=== PATIENT | female | born 2000 | race Caucasian/White ===

== ENCOUNTER 2019-01-04 21:22 | Emergency (ER) | payer SELFPAY ==
[2019-01-04 21:32] VITALS: BP 121/52; PULSE 93; TEMP 98.4; BMI 24.3
--- NOTE | 2019-01-04 21:33 | PDOC ---
Rapid Medical Evaluation Medical Evaluation: 01/04/19 21:29 I have performed a brief in-person evaluation of this patient. The patient presents with a chief complaint of: lower abd pain, CORTÉS, dizziness since today, "just found out i was today." pt states "sometimes I feel like passing out too." denies vag bldg, LMP 12/05, +vomiting, 2-3 times today, denies hematuria or dysuria - OB Drs. Wetzel and Laura, pt is Pertinent physical exam findings: lower abd tenderness I have ordered the following: urine, labs The patient will proceed to the ED for further evaluation.
[2019-01-04] MEDS ORDERED: ACETAMINOPHEN 325 MG TABLET (FP) PO ONE (23:48)
[2019-01-05] MEDS ORDERED: ACETAMINOPHEN 325 MG TABLET (FP) ONE (00:19)
--- NOTE | 2019-01-05 00:35 | PDOC ---
History of Present Illness - General Chief Complaint: Pain Stated Complaint: ABDOMINAL PAIN Time Seen by Provider: 01/04/19 21:29 History Source: Patient Exam Limitations: No Limitations Past History - Past Medical History Allergies/Adverse Reactions: Allergies Allergy/AdvReac Type Severity Reaction Status Date / Time No Known Allergies Allergy Verified 01/04/19 21:30 Home Medications: Ambulatory Orders Cephalexin [Keflex] 500 mg PO BID #14 capsule 01/05/19 COPD: No - Suicide/Smoking/Psychosocial Hx Smoking History: Never smoked *Physical Exam - Vital Signs Last Vital Signs Temp Pulse Resp BP Pulse Ox 98.4 F 93 H 18 121/52 L 97 01/04/19 21:30 01/04/19 21:30 01/04/19 21:30 01/04/19 21:30 01/04/19 21:30 - Physical Exam General Appearance: No: Apparent Distress Respiratory/Chest: positive: Lungs Clear, Normal Breath Sounds. negative: Respiratory Distress Cardiovascular: positive: Regular Rhythm, Regular Rate, S1, S2. negative: Murmur Female Pelvic Exam: negative: adnexal tenderness Gastrointestinal/Abdominal: positive: Normal Bowel Sounds, Soft. negative: Tender, Distended, Guarding, Rebound Integumentary: positive: Normal Color Neurologic: positive: Alert, Normal Mood/Affect ED Treatment Course - LABORATORY CBC & Chemistry Diagram: 01/05/19 00:20 01/05/19 00:20 - Medications Given in the ED: ED Medications Discontinued Medications Generic Name Dose Route Start Last Admin Trade Name Freq PRN Reason Stop Dose Admin Acetaminophen 975 mg 01/04/19 23:48 01/05/19 00:24 Tylenol - PO 01/04/19 23:49 975 mg ONCE ONE Administration Medical Decision Making - Medical Decision Making 18 y/o F , no sig pmh, states she just found out she was today and having some lower abdominal pain today. LNMP 4/2. Denies fever, sob, cp, urinary complaints, vaginal bleeding R/o ectopic Plan: labs, UA, UCG, TVUS, Tylenol, reassess 01/05/19 00:34 Laboratory Tests 01/05/19 00:20 Ur Leukocyte Esterase 1+ H Urine WBC (Auto) 20 Urine Bacteria (Auto) 310.4 TVUS results: IMPRESSION: Live IUP, estimated age 6 weeks one day. Nonvisualization of the right ovary. Pelvic free fluid could be physiologic or due to a collapsed ovarian cyst. UA with some pyuria Will treat given 01/05/19 02:42 *DC/Admit/Observation/Transfer Diagnosis at time of Disposition: Abdominal pain during Qualifiers: Trimester: first trimester Qualified Code(s): O26.891 - Other specified related conditions, first trimester; R10.9 - Unspecified abdominal pain UTI (urinary tract infection) Qualifiers: Urinary tract infection type: acute cystitis Hematuria presence: without hematuria Qualified Code(s): N30.00 - Acute cystitis without hematuria - Discharge Dispostion Condition at time of disposition: Stable Decision to Admit order: No - Prescriptions Prescriptions: Cephalexin [Keflex] 500 mg PO BID #14 capsule - Referrals Referrals: Jocelyn Mares [Primary Care Provider] - 2 Days - Patient Instructions Printed Discharge Instructions: DI for Urinary Tract Infection (UTI) Additional Instructions: Thank you for choosing [facility]. It was a pleasure taking care of you. Your ultrasound was normal Be sure to start taking vitamins daily You were started on antibiotics for possible urine infection Follow-up with your QC TECH for further care Return to the Emergency Department if your symptoms worsen or persist, have severe abdominal pain, heavy vaginal bleeding or other concerning symptoms. - Post Discharge Activity
[2019-01-05 00:40] LABS: BASO % 0.5 % (0-2.0); HEMATOCRIT 38.4 % (32.4-45.2); HEMOGLOBIN 12.6 GM/dL (10.7-15.3); LYMPH % 23.7 % (8-40); MCH 26.3 pg (25.7-33.7); MCHC 32.8 g/dl (32.0-36.0); MEAN CELL VOLUME 80.3 fl (80-96); MONO % 6.6 % (3.8-10.2); NEUT % 68.2 % (42.8-82.8); PLATELET COUNT 239 K/MM3 (134-434); RBC 4.78 M/mm3 (3.60-5.2); RDW 15.1 % (11.6-15.6); WHITE BLOOD COUNT 10.1 K/mm3 (4.0-10.0)
[2019-01-05 00:43] LABS: HYALINE CASTS 4 /lpf (0-8); URINE APPEARANCE CLEAR; URINE BACTERIA 310.4 /hpf (NEGATIVE); URINE BILIRUBIN NEGATIVE (NEGATIVE); URINE COLOR YELLOW; URINE GLUCOSE (UA) NEGATIVE (NEGATIVE); URINE KETONE TRACE (NEGATIVE); URINE LEUK ESTERASE 1+ (NEGATIVE); URINE NITRITE NEGATIVE (NEGATIVE); URINE PROTEIN NEGATIVE (NEGATIVE); URINE RBC 0 /hpf (0-4); URINE UROBILINOGEN 0.2 mg/dL (0.2-1.0); URINE WBC 20 /hpf (0-5)
[2019-01-05 01:16] LABS: ALBUMIN 3.7 g/dl (3.4-5.0); BILIRUBIN,TOTAL 0.4 mg/dL (0.2-1); CALCIUM 9.2 mg/dL (8.5-10.1); CREATININE 0.9 mg/dL (0.55-1.3); TOT PROT 7.7 g/dl (6.4-8.2)
[2019-01-05] MEDS ORDERED: CEPHALEXIN MONOHYDRATE 500 MG CAPSULE (UD) PO ONE (02:40)
[2019-01-05] MEDS ORDERED: CEPHALEXIN MONOHYDRATE 500 MG CAPSULE (UD) ONE (03:00)
== END 2019-01-05 03:16 | disposition home or self-care (01) ==
LOC: JER 21:22
DX: O26.891 Other specified pregnancy related conditions, first trimester (principal); O23.11 Infections of bladder in pregnancy, first trimester; N30.80 Other cystitis without hematuria; Z3A.01 Less than 8 weeks gestation of pregnancy
CPT/HCPCS: 36415; 76801-TC; 80053; 81003; 84702; 84703; 85025; 87086; 99282-25